=== PATIENT | female | born 1955 | race African-American/Black ===

== ENCOUNTER 2019-03-27 03:14 | Inpatient (IN) | payer MEDICARE, OTHER ==
[~2019-03-27] VITALS: Ht 170.2 cm; Wt 90.7 kg
[2019-03-27 03:14] VITALS: BP_SYST 153
[~2019-03-27 03:14] MED LIST: CYCLOBENZAPRINE PO; CYMBALTA PO; HYDR-507 PO; HYDROCHLOROTHIAZIDE PO; LUNESTA PO; MECL-110 PO; POTASSIUM PO; PROCHLORPERAZINE PO
[2019-03-27 04:13] LABS: BASOPHILS # (AUTO) 0.1 K/uL (0.0-0.2); BASOPHILS % (AUTO) 0.5 % (0.0-2.0); EOSINOPHILS % (AUTO) 0.5 % (0.0-4.0); HEMATOCRIT 37.9 % (36-48); HEMOGLOBIN 12.5 g/dL (12.0-16.0); LYMPHOCYTES # (AUTO) 0.7 K/uL (1.0-5.5); LYMPHOCYTES % (AUTO) 7.6 % (20.5-51.5); MEAN CORPUSCULAR HEMOGLOBIN 27 pg (27-31); MEAN CORPUSCULAR HGB CONC 33 % (32-36); MEAN CORPUSCULAR VOLUME 81 fL (79.0-98.0); MONOCYTES # (AUTO) 0.8 K/uL (0.0-1.0); MONOCYTES % (AUTO) 8.6 % (1.7-9.3); NEUTROPHILS # (AUTO) 8.1 K/uL (1.8-7.7); NEUTROPHILS % (AUTO) 82.8 % (40.0-70.0); PLATELET COUNT (AUTO) 467 K/uL (130-430); RED BLOOD CELL COUNT(AUTO) 4.67 MIL/uL (4.2-6.2); RED CELL DISTRIBUTION WIDTH 17.6 % (9.0-15.0); WHITE BLOOD COUNT (AUTO) 9.8 K/uL (4.8-10.8)
[2019-03-27] MEDS ORDERED: ONDANSETRON HCL 4 MG/2 ML VIAL IVP ONE ×2 (04:15→07:45)
[2019-03-27] MEDS ORDERED: NACL 0.9% 1,000 ML IV ONE ×2 (04:15→06:30)
[2019-03-27] MEDS ORDERED: MORPHINE 4 MG/ML INJ. SYRINGE IVP ONE ×2 (04:15→07:00)
[2019-03-27 04:26] LABS: ANION GAP 10 (5-15); CALCIUM 9.3 mg/dL (8.4-11.0); CHLORIDE 101 mmol/L (98-107); CREATININE 0.79 mg/dL (0.55-1.30); GLUCOSE 140 mg/dL (70-99); POTASSIUM 3.2 mmol/L (3.5-5.1); SODIUM SERUM 140 mmol/L (136-145); UREA NITROGEN, BLOOD 7 mg/dL (8-21)
[2019-03-27 04:34] LABS: ALANINE AMINOTRANSFERASE 62 U/L (12-78); ALBUMIN 2.9 g/dL (3.4-4.8); AMYLASE 98 U/L (0-100); ASPARTATE AMINOTRANSFERASE 31 U/L (10-37); LIPASE 432 U/L (73-393); TOTAL BILIRUBIN 0.4 mg/dL (0.0-1.0)
[2019-03-27 04:35] LABS: GFR AFRICAN AMERICAN 94 mL/min (>90)
[2019-03-27 04:44] LABS: BILIRUBIN,URINE NEGATIVE (NEGATIVE); CLARITY/URINE CLEAR (CLEAR); COLOR,URINE YELLOW (YELLOW); GLUCOSE,URINE NEGATIVE (NEGATIVE); KETONES,URINE NEGATIVE (NEGATIVE); LEUKOCYTE ESTERASE ,URINE NEGATIVE (NEGATIVE); NITRITE, URINE NEGATIVE (NEGATIVE); PH,URINE 5.5 (5.0-8.0); PROTEIN URINE NEGATIVE (NEGATIVE); UROBILINOGEN,URINE 0.2 (0.2-1.0)
[2019-03-27 04:47] LABS: BLOOD, URINE TRACE (NEGATIVE)
[2019-03-27 04:49] LABS: BACTERIA,URINE FEW /HPF (None Seen); WBC,URINE 0-3 /HPF (0-3)
[2019-03-27] MEDS ORDERED: NITROGLYCERIN 0.4 MG TAB.SUBL SL ONE (05:00)
[2019-03-27] MEDS ORDERED: IOHEXOL 350 mgI/mL, 150 ML INFUS..BTL IV ONE (05:32)
[2019-03-27] MEDS ORDERED: cefTRIAXone 1 GM IVPB PREMIX 50 ML IV ONE (06:30)
[2019-03-27] MEDS ORDERED: ONDANSETRON HCL 4 MG/2 ML VIAL ONE (07:46)
[2019-03-27 10:14] VITALS: BP_SYST 148
[2019-03-27] MEDS: D5NS 1,000 ML IV SCH ×3 (10:30→21:17)
[2019-03-27] MEDS ORDERED: ONDANSETRON HCL 4 MG/2 ML VIAL IVP PRN ×2 (11:15→16:45)
[2019-03-27 11:30] VITALS: BP_SYST 146
[2019-03-27] MEDS ORDERED: POTASSIUM CHLORIDE 20 MEQ TAB.PRT.SR PO ONE (12:30)
[2019-03-27] MEDS ORDERED: POTASSIUM CHLORIDE 40 MEQ, LIDOCAINE JECT 2% PF 100 MG 50 MG in NS 250 ML IV ONE (13:00)
[2019-03-27] MEDS ORDERED: MORPHINE 2 MG/ML INJ. SYRINGE IVP PRN (15:45)
[2019-03-27] MEDS ORDERED: LORazepam 2 MG/ML VIAL IVP PRN (16:45)
[2019-03-27] MEDS ORDERED: ACETAMINOPHEN 325 MG TABLET PO PRN (16:45)
[2019-03-27] MEDS ORDERED: HYDROcodone/ACETAMIN 10-325 MG TAB PO PRN (16:45)
[2019-03-27] MEDS ORDERED: [UNRECOGNIZED DRUG - OTHER] PO SCH (17:00)
[2019-03-27 18:12] VITALS: BP_SYST 127
[2019-03-27] MEDS ORDERED: POTA10TA15 PO (19:50)
[2019-03-27] MEDS ORDERED: DULO20CA PO (19:50)
[2019-03-27] MEDS ORDERED: METO25TA6 PO (19:52)
[2019-03-27] MEDS ORDERED: FURO-150 PO (19:52)
[2019-03-27 19:53] VITALS: BP_SYST 137
[2019-03-27] MEDS ORDERED: DIPHENHYDRAMINE HCL 25 MG CAPSULE PO PRN (20:30)
[2019-03-27] MEDS ORDERED: HYDROcodone/ACETAMIN 5-325 MG TAB (NORCO/ VICODIN) PO PRN (20:30)
[2019-03-27] MEDS: MECLIZINE HCL 25 MG TABLET (ANITVERT) PO SCH (20:55)
[2019-03-27] MEDS: NORMAL SALINE 5 ML DISP.SYRIN IVF SCH ×2 (20:57→21:17)
[2019-03-27] MEDS ORDERED: ZOLPIDEM TARTRATE 5 MG TABLET PO SCH (21:00)
[2019-03-27] MEDS ORDERED: NORMAL SALINE 5 ML DISP.SYRIN IVF SCH (22:00)
[2019-03-28 00:11] VITALS: BP_SYST 107
[2019-03-28 07:04] LABS: CALCIUM 8.8 mg/dL (8.4-11.0); CREATININE 0.58 mg/dL (0.55-1.30); POTASSIUM 3.8 mmol/L (3.5-5.1)
[2019-03-28 07:06] LABS: BASOPHILS % (AUTO) 0.8 % (0.0-2.0); EOSINOPHILS # (AUTO) 0.1 K/uL (0.0-0.4); HEMATOCRIT 33.6 % (36-48); HEMOGLOBIN 10.7 g/dL (12.0-16.0); LYMPHOCYTES # (AUTO) 0.8 K/uL (1.0-5.5); LYMPHOCYTES % (AUTO) 13.4 % (20.5-51.5); MEAN CORPUSCULAR HEMOGLOBIN 27 pg (27-31); MEAN CORPUSCULAR HGB CONC 32 % (32-36); MEAN CORPUSCULAR VOLUME 83 fL (79.0-98.0); MONOCYTES # (AUTO) 0.7 K/uL (0.0-1.0); NEUTROPHILS # (AUTO) 4.4 K/uL (1.8-7.7); NEUTROPHILS % (AUTO) 71.8 % (40.0-70.0); PLATELET COUNT (AUTO) 333 K/uL (130-430); RED BLOOD CELL COUNT(AUTO) 4.04 MIL/uL (4.2-6.2); RED CELL DISTRIBUTION WIDTH 18.1 % (9.0-15.0)
[2019-03-28 07:55] LABS: WHITE BLOOD COUNT (AUTO) 6.1 K/uL (4.8-10.8)
[2019-03-28 08:00] VITALS: BP_SYST 125
[2019-03-28] MEDS: HYDROcodone/ACETAMIN 5-325 MG TAB (NORCO/ VICODIN) PO SCH ×2 (08:26→15:36)
[2019-03-28] MEDS: D5NS 1,000 ML IV SCH (08:27)
[2019-03-28] MEDS: CYCLOBENZAPRINE HCL 10 MG TABLET (FLEXERIL) PO SCH ×2 (08:35→15:00)
[2019-03-28] MEDS: MECLIZINE HCL 25 MG TABLET (ANITVERT) PO SCH ×2 (08:36→15:00)
[2019-03-28] MEDS ORDERED: POTASSIUM PO SCH (09:00)
[2019-03-28] MEDS ORDERED: DULoxetine HCL 20 MG CAPSULE.DR PO SCH (09:00)
[2019-03-28] MEDS ORDERED: METOPROLOL TARTRATE 25 MG TABLET PO SCH (09:00)
[2019-03-28] MEDS ORDERED: HYDROCHLOROTHIAZIDE PO SCH (09:00)
[2019-03-28] MEDS ORDERED: POTASSIUM CHLORIDE 10 MEQ TAB.PRT.SR PO SCH (09:00)
[2019-03-28] MEDS ORDERED: CYMBALTA PO SCH (09:00)
[2019-03-28] MEDS ORDERED: FUROSEMIDE 20 MG TABLET PO SCH (09:00)
[2019-03-28] MEDS ORDERED: GASTROGRAFIN 120 ML ONE (10:31)
[2019-03-28 12:00] VITALS: BP_SYST 128
[2019-03-28] MEDS ORDERED: METOCLOPRAMIDE HCL 10 MG/2 ML VIAL IVP SCH (14:00)
[2019-03-28] MEDS: NORMAL SALINE 5 ML DISP.SYRIN IVF SCH (15:37)
[2019-03-28 16:12] VITALS: BP_SYST 143
[2019-03-28 18:55] VITALS: BP_SYST 145
[2019-03-29] MEDS ORDERED: MINERAL OIL 30 ML UDC PO SCH (09:00)
== END 2019-03-28 20:13 | disposition short-term general hospital (02) | DRG 206 ==
LOC: SED 03:14 → STU 07:57
PROVIDERS: ADMIT Preventive Medicine Preventive Medicine/Occupational Environmental Medicine; ATTEND Preventive Medicine Preventive Medicine/Occupational Environmental Medicine
DX: M94.0 Chondrocostal junction syndrome [Tietze] (principal); K56.7 Ileus, unspecified; E44.1 Mild protein-calorie malnutrition; D64.9 Anemia, unspecified; E78.5 Hyperlipidemia, unspecified; E87.5 Hyperkalemia; E87.6 Hypokalemia; G89.29 Other chronic pain; I10 Essential (primary) hypertension; J98.4 Other disorders of lung; K80.20 Calculus of gallbladder without cholecystitis without obstruction; Z96.652 Presence of left artificial knee joint; D47.3 Essential (hemorrhagic) thrombocythemia; R73.9 Hyperglycemia, unspecified; Z79.899 Other long term (current) drug therapy; Z79.891 Long term (current) use of opiate analgesic; Z83.3 Family history of diabetes mellitus; Z90.49 Acquired absence of other specified parts of digestive tract
CPT/HCPCS: 36415; 71045; 71275; 74018; 74250-TC; 80048; 80053; 81000-TC; 82150-TC; 82550-TC; 83605; 83690-TC; 83880; 84484; 85025; 85379; 87040-TC; 87081; 93005; 93306; 93970; 96361; 96365; 96375; 96376; 99285; G0378; J0696; J2270; J2405; J2765; J3480; J7030; J7042; J7050; J8597; Q0163; Q9963; Q9967

== ENCOUNTER 2019-04-06 00:20 | Emergency (ER) | payer MEDICARE, OTHER ==
[~2019-04-06] VITALS: Ht 170.2 cm; Wt 80.7 kg
[2019-04-06 00:20] VITALS: BP_SYST 135
[~2019-04-06 00:20] MED LIST changes: -CYMBALTA PO; +DULO20CA PO; +FURO-150 PO; +METO25TA6 PO; +POTA10TA15 PO
[2019-04-06] MEDS ORDERED: NACL 0.9% 1,000 ML IV ONE (00:34)
--- NOTE | 2019-04-06 00:39 | NUR ---
Patient to ER bed 8 to gown for evaluation. Side rails up.
--- NOTE | 2019-04-06 00:40 | NUR ---
6ER at bedside examining patient.
[2019-04-06] MEDS ORDERED: MORPHINE 2 MG/ML INJ. SYRINGE IVP ONE (00:45)
[2019-04-06] MEDS ORDERED: ONDANSETRON HCL 4 MG/2 ML VIAL IVP ONE ×2 (00:45→04:45)
--- NOTE | 2019-04-06 00:50 | NUR ---
PT came to the ED for 3 days of constant ABD pain post surgery. Reports that pt had sx for small bowel obstruction 2-3 weeks ago but had increasing pain for the last 3 days. Reports she has not been able to keep anything down. No other complaints/injuries noted. Will cont. to monitor.
--- NOTE | 2019-04-06 01:00 | NUR ---
PT resting in bed, no signs of acute distress. Will cont. to monitor.
[2019-04-06 01:28] LABS: BASOPHILS % (AUTO) 0.5 % (0.0-2.0); EOSINOPHILS # (AUTO) 0.1 K/uL (0.0-0.4); EOSINOPHILS % (AUTO) 1.4 % (0.0-4.0); HEMATOCRIT 39.3 % (36-48); HEMOGLOBIN 12.7 g/dL (12.0-16.0); LYMPHOCYTES # (AUTO) 0.9 K/uL (1.0-5.5); LYMPHOCYTES % (AUTO) 12.1 % (20.5-51.5); MEAN CORPUSCULAR HEMOGLOBIN 27 pg (27-31); MEAN CORPUSCULAR HGB CONC 32 % (32-36); MEAN CORPUSCULAR VOLUME 83 fL (79.0-98.0); MONOCYTES % (AUTO) 13.2 % (1.7-9.3); NEUTROPHILS # (AUTO) 5.7 K/uL (1.8-7.7); NEUTROPHILS % (AUTO) 72.8 % (40.0-70.0); PLATELET COUNT (AUTO) 305 K/uL (130-430); RED BLOOD CELL COUNT(AUTO) 4.75 MIL/uL (4.2-6.2); RED CELL DISTRIBUTION WIDTH 18.8 % (9.0-15.0); WHITE BLOOD COUNT (AUTO) 7.8 K/uL (4.8-10.8)
[2019-04-06 01:40] LABS: ANION GAP 6 (5-15); CALCIUM 9.4 mg/dL (8.4-11.0); CHLORIDE 103 mmol/L (98-107); CREATININE 0.81 mg/dL (0.55-1.30); GLUCOSE 108 mg/dL (70-99); SODIUM SERUM 139 mmol/L (136-145); UREA NITROGEN, BLOOD 6 mg/dL (8-21)
[2019-04-06 01:44] LABS: INR 1.1 (0.8-1.2); PROTHROMBIN TIME 10.6 SECS (9.5-12.5)
[2019-04-06 02:00] LABS: ALANINE AMINOTRANSFERASE 13 U/L (12-78); ALBUMIN 2.8 g/dL (3.4-4.8); ASPARTATE AMINOTRANSFERASE 22 U/L (10-37); LIPASE 126 U/L (73-393); TOTAL BILIRUBIN 0.3 mg/dL (0.0-1.0)
--- NOTE | 2019-04-06 02:00 | NUR ---
PT resting in bed, no signs of acute distress. Will cont. to monitor.
[2019-04-06 02:01] LABS: GFR AFRICAN AMERICAN 91 mL/min (>90)
[2019-04-06] MEDS ORDERED: PIPERACILLIN/TAZO 3.375 GM in NS 50 ML IV ONE (02:45)
--- NOTE | 2019-04-06 03:00 | NUR ---
PT resting in bed, no signs of acute distress. Will cont. to monitor.
[2019-04-06] MEDS ORDERED: PIPERACILLIN/TAZOBACTAM 3.375 GM/VIAL (ZOSYN) IV ONE (04:26)
--- NOTE | 2019-04-06 04:30 | NUR ---
Pt reports that she still feels nauseous, ER MD made aware.
[2019-04-06 05:16] VITALS: BP_SYST 158
--- NOTE | 2019-04-06 05:16 | NUR ---
Patient to be transferred to [facility]. Is being transferred due to higher level of care. Receiving facility has accepting physician and available space. ER physician has signed transfer form. Patient or responsible republican has agreed to transfer and signed form. Patient belongings inventoried and will be sent with patient. Copy of nursing notes, lab reports, EKG, Physicians Orders and X-rays to be sent with patient. Report called to RN at receiving facility. Receiving physician is . [facility] has been called for transfer. ETA is now.
== END 2019-04-06 05:16 | disposition home or self-care (01) ==
LOC: SED 00:20
DX: G89.18 Other acute postprocedural pain (principal); R11.2 Nausea with vomiting, unspecified; E78.00 Pure hypercholesterolemia, unspecified; I10 Essential (primary) hypertension; Z96.652 Presence of left artificial knee joint; Z98.890 Other specified postprocedural states
CPT/HCPCS: 36415; 74176; 80053; 83690; 84484; 85025; 85610; 85730; 87040; 93005; 96361; 96365; 96375; 96376; 99284; J2405; J2543; J7030; 96374

== ENCOUNTER 2019-04-12 21:13 | Emergency (ER) | payer MEDICARE, OTHER ==
[~2019-04-12] VITALS: Ht 170.2 cm; Wt 81.6 kg
[2019-04-12 21:18] VITALS: BP_SYST 153
[2019-04-12] MEDS ORDERED: ONDANSETRON HCL 4 MG/2 ML VIAL ONE (22:35)
[2019-04-12] MEDS ORDERED: ONDANSETRON HCL 4 MG/2 ML VIAL IVP ONE (23:00)
[2019-04-12] MEDS ORDERED: METOCLOPRAMIDE HCL 10 MG/2 ML VIAL IVP ONE (23:30)
[2019-04-12 23:33] LABS: BASOPHILS # (AUTO) 0.1 K/uL (0.0-0.2); BASOPHILS % (AUTO) 0.9 % (0.0-2.0); EOSINOPHILS % (AUTO) 0.2 % (0.0-4.0); HEMATOCRIT 44.4 % (36-48); HEMOGLOBIN 14.3 g/dL (12.0-16.0); LYMPHOCYTES # (AUTO) 0.7 K/uL (1.0-5.5); LYMPHOCYTES % (AUTO) 8.1 % (20.5-51.5); MEAN CORPUSCULAR HEMOGLOBIN 26 pg (27-31); MEAN CORPUSCULAR HGB CONC 32 % (32-36); MEAN CORPUSCULAR VOLUME 82 fL (79.0-98.0); MONOCYTES # (AUTO) 0.7 K/uL (0.0-1.0); NEUTROPHILS # (AUTO) 7.1 K/uL (1.8-7.7); NEUTROPHILS % (AUTO) 82.8 % (40.0-70.0); PLATELET COUNT (AUTO) 353 K/uL (130-430); RED BLOOD CELL COUNT(AUTO) 5.43 MIL/uL (4.2-6.2); RED CELL DISTRIBUTION WIDTH 18.9 % (9.0-15.0); WHITE BLOOD COUNT (AUTO) 8.6 K/uL (4.8-10.8)
[2019-04-12 23:33] LABS: BILIRUBIN,URINE 1+ (NEGATIVE); BLOOD, URINE NEGATIVE (NEGATIVE); CLARITY/URINE CLEAR (CLEAR); COLOR,URINE YELLOW (YELLOW); GLUCOSE,URINE NEGATIVE (NEGATIVE); KETONES,URINE 2+ (NEGATIVE); LEUKOCYTE ESTERASE ,URINE 2+ (NEGATIVE); NITRITE, URINE NEGATIVE (NEGATIVE); PH,URINE 7.5 (5.0-8.0); PROTEIN URINE TRACE (NEGATIVE); UROBILINOGEN,URINE 0.2 (0.2-1.0)
[2019-04-12 23:37] LABS: BACTERIA,URINE MODERATE /HPF (None Seen)
[2019-04-12] MEDS ORDERED: NACL 0.9% 1,000 ML IV ONE (23:45)
[2019-04-12 23:50] LABS: ANION GAP 9 (5-15); CALCIUM 9.6 mg/dL (8.4-11.0); CHLORIDE 101 mmol/L (98-107); CREATININE 0.82 mg/dL (0.55-1.30); GLUCOSE 140 mg/dL (70-99); POTASSIUM 3.7 mmol/L (3.5-5.1); SODIUM SERUM 137 mmol/L (136-145); UREA NITROGEN, BLOOD 6 mg/dL (8-21)
[2019-04-13 00:03] LABS: ALANINE AMINOTRANSFERASE 25 U/L (12-78); ALBUMIN 3.3 g/dL (3.4-4.8); ASPARTATE AMINOTRANSFERASE 41 U/L (10-37); LIPASE 6 U/L (73-393); TOTAL BILIRUBIN 0.4 mg/dL (0.0-1.0)
[2019-04-13 00:04] LABS: GFR AFRICAN AMERICAN 90 mL/min (>90)
[2019-04-13] MEDS ORDERED: cefTRIAXone 1 GM IVPB PREMIX 50 ML IV ONE (01:30)
[2019-04-13] MEDS ORDERED: fentaNYL CITRATE/PF 100 MCG/2 ML AMP IVP ONE (01:45)
[2019-04-13 02:28] VITALS: BP_SYST 135
== END 2019-04-13 02:28 | disposition short-term general hospital (02) ==
LOC: SED 21:13
DX: R11.2 Nausea with vomiting, unspecified (principal); R42 Dizziness and giddiness; I10 Essential (primary) hypertension; Z88.5 Allergy status to narcotic agent; Z79.899 Other long term (current) drug therapy
CPT/HCPCS: 36415; 80053; 81000; 83605; 83690; 84484; 85025; 87040; 87086; 93005; 96361; 96365; 96375 ×2; 99285; J0696; J2405; J2765; J3010; J7030